=== PATIENT | female | born 1975 | race Caucasian/White ===

== ENCOUNTER → 2016-04-28 | Outpatient (CLI) | payer MEDICAID ==
[~2016-04-28] MED LIST: CETIRIZINE HYDR10 MG OR; CLARITIN 10MG T10 MG PO; CYCLOBENZAPRINE10 MG PO; DOXYCYCLINE; DOXYCYCLINE100 M1 PO; ELAVIL GENERIC25 MG PO; ESTRACE0.5 MG OR; FLAGYL 500MG.500 MG PO; GABAPENTIN300 M1 PO; HYDROCODONE/ACE1 TA5 PO; IBU800 MG PO; LEVOFLOXACIN 7750 M1 PO; LORTAB 7.5/3251 TAB PO; MAXALT10 MG PO; NYSTATIN 1100000 UNI PO; OMEPRAZOLE20 MG PO; POTASSIUM CHLO20 ME2 PO; SUMATRIPTAN SU100 MG PO; TOPIRAMATE200 MG PO; VENLAFAXINE HY150 MG PO; VITAMIN D50000 IU PO; [UNRECOGNIZED DRUG - OTHER] VG
== END ==
LOC: LAB 20:15
DX: R10.9 Unspecified abdominal pain (principal)

== ENCOUNTER → 2016-07-31 | Outpatient (CLI) | payer MEDICAID ==
--- NOTE | 2016-07-31 16:29 | RADIOLOGY REPORT PS360 ---
ANKLE-RT-3 VIEWS HISTORY: Sprain/pain SPRAIN OF RT ANKLE ORDERING PHYSICIAN: Neetu Carrasco MD PATIENT AGE: 40 years COMPARISON: None FINDINGS: No fracture or dislocation. No lytic or blastic change. There is normal mineralization.. The joint spaces are well-preserved. No significant degenerative/arthritic changes. No erosive changes evident. Minimal soft tissue swelling laterally IMPRESSION: Minimal soft tissue swelling, no acute fracture
== END ==
LOC: RAD 15:37
DX: S93.491A Sprain of other ligament of right ankle, initial encounter (principal)

== ENCOUNTER 2016-11-30 10:26 | Emergency (ER) | payer MEDICAID ==
[~2016-11-30] VITALS: Ht 162.6 cm; Wt 97.5 kg
[~2016-11-30 10:26] MED LIST changes: +ALPRAZOLAM0.5 M3 PO; +CYMBALTA60 M1 PO; +FEMRING0.05 MG/24 VG; +FLAGYL500 M1 PO; +GLUCOPHAGE XR750 MG PO; +LINZESS290 MCG PO; +PREDNISONE 20MG20 MG PO; +VALTREX1 GM PO
--- NOTE | 2016-11-30 11:04 | Urgent Treatment Center Report ---
History of Present Issue Date/Time Seen by Provider 11/30/16 1050 Visit Reason Pt arrived:Walked Presenting Problem:PT C/O SORE THROAT AND CHATTERJEE X2 DAYS. PT BELIEVES SHE MAY HAVE STREP THROAT AND ALSO CONCERNED ABOUT A VAGINAL INFECTION Location if Accident: Onset of symptoms date/time:/ or onset unknown for:MEDICAL HX UNKNOWN Have you (or family members/close friends) recently traveled outside the [place]? N If Yes, where/when: Have you had exposure to infectious disease within the past month? TB? Other? Specify: Here d/t sore throat starting in the middle of the night but while here, also concerned about a possible vaginal infection. Sore throat started throughout night. "could be allergies but could be strep. They feel the same for me." Associated w/ dry cough and migraine. Described as scratchy and raw. No fever, aches, chills. Hasn't taken or tried anything for symptoms. Primarily interest to know if she has strep or not. Migraine started yesterday. 12/16. 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 Hx of migraines. Topamax yesterday didn't help. Hasn't tried it today. Drove here today. Is not interested in having migraine treated. "I have tramadol at home". c/o "I know I have a bacterial vaginal infection". c/o "yellow discharge, fishy odor and itchy" x 2-3 days. hx of genital herpes as well as yeast/bacterial infections. take valtrex daily and uses acyclovir cream TID PRN w/ new lesions. Currently out of acyclovir and requesting refill. Denies new lesions. Two lesions present "but those are always there and was there before I was sexually active.". 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 pt already took diflucan prior to arrival. Sexually active w/ multiple sexual partners. Hx of partial hysterectomy w/ right ovary remaining. Hx of right ovarian cysts. Denies abdominal pain. "just suprapubic fullness". Denies dysuria but does have urinary frequency however reports "this is normal for me. I was told I needed a bladder tack" Source patient Exam Limitations no limitations ALLERGIES Coded Allergies: amoxicillin (From AUGMENTIN) (Mild, 11/30/16) clavulanic acid (From AUGMENTIN) (Mild, 11/30/16) morphine (10/20/16) Home Medications Active Scripts Metronidazole (Flagyl) 500 MG PO TID #21 TAB Prov: 10/24/16 POTASSIUM CHL (Potassium Chloride) 20 MEQ PO DAILY #30 TAB Ref 3 Prov: 04/12/14 Reported Medications Ibuprofen (MOTRIN 800MG (generic) Tablet) 800 MG PO TIDP PRN PAIN #90 TAB Alprazolam 0.5 MG PO TID DULOXETINE HCL (Cymbalta) 90 MG PO DAILY VALACYCLOVIR HCL (Valtrex) 1 GM PO DAILY METFORMIN HCL (Glucophage XR) 750 MG PO DAILY Estradiol Acetate (Femring) 0.05 MG VG MONTHLY Omeprazole (Omeprazole 20MG) 20 MG PO DAILY #30 Cetirizine Hcl (Cetirizine Hydrochloride) 10 MG OR DAILY #30 ERGOCALCIFEROL (VITAMIN D2) (Vitamin D2) 50,000 IUNITS PO ONCE #4 Topiramate 200 MG PO DAILY #30 Sumatriptan Succinate 100 MG PO PRN PRN NEEDED FOR HEADACHE #9 History Medical History General CAD? No Angina: No [place]: No Hypertension? Yes Hyperlipidemia? No CHF? No COPD? No Asthma? No Anemia? No Hernia? No Thyroid Problems? No Hypothyroidism? No CVA? No Seizures? No Diabetes? No UTI? Yes Stones? No GB Disease: No Nephritic Syndrome? No Asplenia? No Hepatitis? No Sickle Cell Disease? No Arthritis? No Migraines? Yes Cataracts? No Glaucoma? No MRSA? No TB? No Cancer? No Immunization HX DT/Tetanus 1-4 Years Ago Flu Refused Pneumonia Refuses Surgical Hx Previous Surgery?Y D+C RIGHT KNEE SURGERY X3 RIGHT KNEE SURGERY AGAIN TWO WISDOM TEETH REMOVED HYSTERECTOMY X2 LEFT ANKLE CARPAL TUNNEL R Cholecystectomy Family History Family HX Diabetes Yes CAD Yes Hypertension Yes Hyperlipidemia Yes Cancer Yes TB No Social History Smoking Hx Smoker: Never Smoker Tobacco: No Alcohol Alcohol: No Review of Systems All Other Systems Reviewed and Negative Constitutional see HPI, denies chills, denies malaise Eyes denies drainage ENT see HPI. denies: ear pain, nose discharge, nose congestion, throat swelling. Respiratory see HPI, denies shortness of breath, denies wheezing Cardiovascular denies chest pain Gastrointestinal see HPI, denies constipation, denies diarrhea, denies nausea, denies vomiting Genitourinary see HPI. denies: hesitancy, dyspareunia. Musculoskeletal denies back pain Skin see HPI, denies rash Psychiatric/Neurological see HPI Physical Exam Vital Signs Vital Signs Date Time Temp Pulse Resp B/P Pulse O2 O2 Flow FiO2 Ox Delivery Rate 11/30 1037 98.4 79 18 142/97 98 General Appearance normal appearance, no apparent distress, very talkative, browsing on phone throughout entire stay in [facility], eager to show off wedding pictures from last night Eye Exam - bilateral eye normal exam Ear, Nose, Throat normal ENT inspection Neck non-tender, supple, full range of motion Respiratory Status Yes: trachea midline. No: respiratory distress, use of accessory muscles, productive cough, non productive cough. Lung Sounds anterior: lungs clear. posterior: lungs clear. bilateral: lungs clear. Cardiovascular regular rate/rhythm, no peripheral edema, no murmur Gastrointestinal normal bowel sounds, non tender, soft, no suprapubic tenderness , no bladder distention Back no CVA tenderness Pelvic normal external exam (x/ lesions), normal internal exam (x/ minimal discharge), normal adnexa, no cerv. motion tender, no masses, discharge (minimal , white), two lesions right labia majoria, pt reports "always there", approx 2- 4mm Nurse present during exam? Yes (Alicia) Neurologic alert, oriented x 3 Mental status normal mood/affect, very pleasant Skin normal color, warm/dry Lymphatic no adenopathy Medical Decision Making LABS/Meds/Orders Pt receiving controlled substance in ED? No Results/Orders Laboratory Tests 11/30/16 1220: Ur Chlamydia DNA (PCR) Pending, Urine GC DNA Probe Pending 11/30/16 1211: Urine Color DARK YELLOW, Urine Appearance SLIGHTY CLOUDY, Urine pH 8.5, Ur Specific [place] 1.020, Urine Protein NEGATIVE, Urine Ketones NEGATIVE, Urine Blood NEGATIVE, Urine Nitrate NEGATIVE, Urine Bilirubin NEGATIVE, Urine Urobilinogen 2.0, Ur Leukocyte Esterase NEGATIVE, Urine Glucose NEGATIVE 11/30/16 1050: Group A Strep Screen NOT DETECTED Current Medication Orders Sig/Gilles Start time Last Medication Dose Route Stop Time Status Admin Azithromycin 1,000 MG ONCE ONE 11/30 1300 DC 11/30 PO 11/30 1301 1305 Ceftriaxone Sodium 1 GM ONCE ONE 11/30 1300 DCr 11/30 IM 11/30 1301 1305 Lidocaine HCl 0 ONCE ONE 11/30 1300 DC 11/30 IM 11/30 1301 1305 Ceftriaxone Sodium 0 .STK-MED ONE 11/30 1259 DCr .ROUTE Lidocaine HCl 0 .STK-MED ONE 11/30 1259 DC .ROUTE Azithromycin 0 .STK-MED ONE 11/30 1258 DC PO Orders Procedure Date/time Status WET PREP 11/30 1211 Complete MAJOR PREP 11/30 1211 Complete UTC URINE DIPSTICK 11/30 1211 Complete CHL/GC URINE 11/30 1211 Active UT STREP SCREEN 11/30 1041 Complete Progress UT Progress Notes Date 11/30/16 Time 1254 Comment Discussed results w/ patient. Agrees that treatment for gonorrhea and chlamydia "probably [place]". Hx of being treated for both in the past. Allergy to amoxicillin and augmentin listed. Pt reports not allergy and "more intolerance". Hx of Cdiff w/ augmentin. Reports has had multiple rocephin injections in the past "without complications". Agrees to follow up w/ SECURITY CONTROL ROOM OFFICER tomorrow. Aware GC/Ch results won't be available for approx one week and extrememely important she follow up on those. States + understanding. agreeable. Departure Departure Time of Disposition 1305 Disposition DC Home or Self Care(routine) Clinical Impression Primary Impression: Sore throat Secondary Impressions: Bacterial vaginitis, High risk sexual behavior Condition STABLE Referrals NO REFERRAL Dr. German, SECURITY CONTROL ROOM OFFICER, call tomorrow and schedule follow up appt Patient Instructions DI for Chlamydia, DI for Gonorrhea, Informing Partners of STI Patients Reduces Ongoing and Recurrent Sexually T, Sore Throat Additional Instructions Sextually transmitted infection was NOT comfirmed today but test were sent to rule it out. Those test will not be available for 5-7 days. Follow up w/ Dr. German VERY important. No intercourse until test results known No intercourse during outbreaks Acyclovir cream was refill at your request but FU w/ Dr. German for additional treatment and refills * No sign of bacterial throat infection. Possibly viral or allergic. Really soon to know. If viral, can take 7-14 days to run their course * Monitor Temp. Tylenol every 4 hours as needed and/or ibuprofen every 6 hours as needed (as long as your primary care doctor has told you that it is ok to take both) for fever/aches/pain. ER if fever no less than 101 despite tylenol and ibuprofen * Encourage fluids, water, gatorade, powerade, pedialyte if infant/toddler/child * warm salt water gargles * warm fluids * sore throat lozenges * sleep elevated * humidifier/vaporizer * * Your throat swab was sent for culture. Those results are typically sent to your primary care. Be sure to follow up in 2-3 days if no improvement so they can review those results and treat if necessary. If you don't have primary care, I recommend you get one but in the mean time, you will have to return to a walk in clinic. Discharge Counseling Counseled pt/family regarding diagnosis, test results, medications/RX, home care, follow up needs Prescriptions Current Visit Scripts ACYCLOVIR (Zovirax Cream) 1 RITIKA TP TIDP PRN genital lesions #1 TUBE at 1314
[2016-11-30 12:40] LABS: URINE BILIRUBIN - DIPSTICK NEGATIVE (NEG); URINE BLOOD NEGATIVE (NEG)
[2016-11-30] MEDS ORDERED: ZOVIRAX51 TP (13:03)
[2016-11-30 13:13] VITALS: BP 142/97
[2016-12-03 08:46] LABS: Neisseria gonorrhoeae, NAA Negative (Negative)
== END 2016-11-30 13:17 | disposition home or self-care (01) ==
LOC: UTC 10:26
PROVIDERS: Nurse Practitioner Family
DX: J02.9 Acute pharyngitis, unspecified (principal); N76.0 Acute vaginitis; Z72.51 High risk heterosexual behavior; Z88.1 Allergy status to other antibiotic agents; Z88.6 Allergy status to analgesic agent; Z79.899 Other long term (current) drug therapy; I10 Essential (primary) hypertension; G43.909 Migraine, unspecified, not intractable, without status migrainosus

== ENCOUNTER 2016-12-22 19:58 | Emergency (ER) | payer MEDICAID ==
[~2016-12-22] VITALS: Ht 162.6 cm; Wt 99.3 kg
[~2016-12-22 19:58] MED LIST changes: +ZOVIRAX51 TP
--- NOTE | 2016-12-22 20:16 | Emergency Room Report ---
History of Present Illness Time Seen by 2013 Presenting Problem in Triage Pt arrived:Walked Presenting Problem:C/O MID CHEST PAIN SHARP IN NATURE WHICH STARTED TODAY AND RADIATES TO RIGHT SIDE. HAD EDG 0N 12/17/16 AND HAD ESOPHAGUS DILATED ALONG WITH COLONOSCOPY AND BIOPSY OF STOMACH AND INTESTINES. STATES PAIN IS WORSE WITH MOVEMENT AND RESP. 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 N Clinical Suspician of Infection? N Mental Status: 1 - Regular (Normal Baseline) Sepsis Risk:Possible Sepsis Risk Have you (or family members/close friends) recently traveled outside the [place]? N If Yes, where/when: Have you had exposure to infectious disease within the past month? N TB? Other? Specify: Source patient, RN notes reviewed, family, RN/MD Exam Limitations no limitations Comment This is a 41-year-old female patient presented to emergency room with midsternal, sharp, epigastric pain radiating into the mid chest, onset approximately 6 hours prior to arrival. Patient has a history of esophageal strictures, and underwent an EGD with esophageal dilatation on December 17. On Thursday she underwent a colonoscopy with biopsies. Procedures were uneventful, and she has recovered without any complications. She has a history of C. difficile, H. pylori, gastritis, currently on PPIs, H2 blockers etc. She drinks alcohol occasionally. ALLERGIES Coded Allergies: amoxicillin (From AUGMENTIN) (Mild, 11/30/16) clavulanic acid (From AUGMENTIN) (Mild, 11/30/16) morphine (10/20/16) Home Medications Active Scripts ACYCLOVIR (Zovirax Cream) 1 RITIKA TP TIDP PRN genital lesions #1 TUBE Prov: 11/30/16 POTASSIUM CHL (Potassium Chloride) 20 MEQ PO DAILY #30 TAB Ref 3 Prov: 04/12/14 Reported Medications Alprazolam 0.5 MG PO TID DULOXETINE HCL (Cymbalta) 90 MG PO DAILY VALACYCLOVIR HCL (Valtrex) 1 GM PO DAILY Omeprazole (Omeprazole 20MG) 20 MG PO DAILY #30 Cetirizine Hcl (Cetirizine Hydrochloride) 10 MG OR DAILY #30 ERGOCALCIFEROL (VITAMIN D2) (Vitamin D2) 50,000 IUNITS PO ONCE #4 METFORMIN HCL (Glucophage XR) 750 MG PO BID Topiramate 200 MG PO DAILY #30 Sumatriptan Succinate 100 MG PO PRN PRN NEEDED FOR HEADACHE #9 History Medical History General CAD? No Angina: No [place]: No Hypertension? Yes Hyperlipidemia? No CHF? No DVT? No PE? No COPD? No Asthma? No Anemia? No GERD? No Gastric ulcers? No GI Bleed? No Hernia? No Thyroid Problems? No Hypothyroidism? No CVA? No Seizures? No Diabetes? No Renal Insuffiency? No End Stage Renal Disease? No UTI? Yes Stones? No BPH? No GB Disease: No Nephritic Syndrome? No Asplenia? No Hepatitis? No Sickle Cell Disease? No Arthritis? No Migraines? Yes Cataracts? No Glaucoma? No MRSA? No HIV? No TB? No Anxiety? No Depression? No Cancer? No More? No Immunization Hx DT/Tetanus 1-4 Years Ago Flu Refused Pneumonia Refuses Surgical Hx Previous Surgery?Y D+C RIGHT KNEE SURGERY X3 RIGHT KNEE SURGERY AGAIN TWO WISDOM TEETH REMOVED HYSTERECTOMY X2 LEFT ANKLE CARPAL TUNNEL R Cholecystectomy MINISTER Hx LMP N/A Comment HYSTERECTOMY Family History Family Hx Diabetes Yes CAD Yes Hypertension Yes Hyperlipidemia Yes Cancer Yes TB No Social History Smoking Hx Smoker: Never Smoker Tobacco: No Alcohol Alcohol: No Review of Systems All Other Systems Reviewed and Negative Cardiovascular chest pain Gastrointestinal abdominal pain Physical Exam Vital Signs Vital Signs Date Time Temp Pulse Resp B/P Pulse O2 O2 Flow FiO2 Ox Delivery Rate 12/22 2224 98.4 73 20 119/78 98 12/22 2217 73 20 119/78 98 12/22 2142 69 20 121/76 100 12/22 2102 67 20 119/69 98 12/22 2000 98.4 91 20 148/96 98 General Appearance normal appearance, WD/WN, no apparent distress Respiratory Status Yes: trachea midline, chest symmetrical, non tender chest. No: respiratory distress. Lung Sounds bilateral: normal breath sounds, lungs clear. Cardiovascular normal exam, regular rate/rhythm, no peripheral edema, no gallop, no JVD, no murmur, no rub, normal peripheral pulses Gastrointestinal soft, no organomegaly, tenderness (epigastric tenderness) Extremities non-tender, normal range of motion, normal inspection Neurologic alert, hat lining paster II-XII nml as tested, normal exam, oriented x 3 Mental status normal mood/affect Skin intact, normal color, warm/dry Medical Decision Making LABS/Meds/Orders Pt receiving controlled substance in ED? No Comment Upon reevaluation patient is medically stable, in no acute distress. Advised patient of the results obtained, as well as need to follow-up with bingo clerk, Dr. Fuad Smith, per discharge instructions. Patient advised to avoid any of all intake, continue current medications, as previously instructed. Results/Orders Laboratory Tests 12/22/162018: B-Natriuretic Peptide < 5, D-Dimer < 100 12/22/161949: Sodium 138, Potassium 3.7, Chloride 104, Carbon Dioxide 26, BUN 16, Creatinine 0.8, Estimated Creat Clear 147, Estimated GFR (MDRD) 79, Glucose 101, Calcium 9.0, Total Bilirubin 0.4, AST 19, ALT 33, Alkaline Phosphatase 81, Creatine Kinase 53, CK-MB (CK-2) Rel Index 0.9, CK and CKMB Interp < 0.5, Troponin I < 0.02, Total Protein 7.3, Albumin 3.8, Globulin 3.5 H, Albumin/Globulin Ratio 1.1, Amylase 35, Lipase 152, WBC 9.7, RBC 4.08 L, Hgb 14.3, Hct 41.9, MCV 102.7 H, RDW 13.0, Plt Count 312, MPV 7.5, Gran % 61.7, Gran # 6.0, Lymphocytes % 31.6, Monocytes % 4.9, Eosinophils % 1.3, Basophils % 0.5, Lymphocytes # 3.1, Monocytes # 0.5, Eosinophils # 0.1, Basophils # 0.1, PUBS MCHC 34.2, MCH 35.1 H Current Medication Orders Sig/Gilles Start time Last Medication Dose Route Stop Time Status Admin Aspirin 0 .STK-MED ONE 12/22 2022 DC .ROUTE Aspirin 324 MG ONCE ONE 12/22 2014 DC 12/22 PO 12/22 Sodium Chloride 10 ML PRN PRN 12/22 2014 DCD IV 12/23 2010 Orders Procedure Date/time Status D-DIMER 12/22 2018 Complete BRAIN NATRIURETIC PEPTIDE 12/22 2018 Complete ELECTROCARDIOGRAM REQUEST 12/22 2010 Active CHEST(2 VIEWS-NOT PORTABLE) 12/22 2010 Active IV SALINE LOCK 12/22 2010 Active DEVELOPER ARCHITECT 12/22 2010 Active LIPASE 12/22 2010 Complete CBC WITH AUTO DIFF 12/22 2010 Complete CARDIAC ENZYMES 12/22 2010 Complete CHEM 12 PROFILE 12/22 2010 Complete AMYLASE 12/22 2010 Complete 12 LEAD EKG-OSMEL (INITIAL) 12/22 1953 Active CM/EKG CM/administrative office specialist Rhythm Normal Sinus Rhythm Rate 88 Ectopy No Comments No acute ischemic changes EKG rate, NSR, rhythm, no evid. of ischemic chgs, no ectopy, normal QRS, normal GA, normal EKG, no EKG for comparison, non-spec. ST/Twave chgs, ST elevation, ST depression, LBBB, RBBB, ectopy, abnormal Q waves XRAY/CT/US XRAY/CT/US XRAY chest XR interpretation by reviewed by me Xray Results no infiltrates, normal heart size, normal lung inflation wendy Departure Departure Time of Disposition 2213 Disposition DC Home or Self Care(routine) Clinical Impression Primary Impression: Chest pain Qualifiers: Chest pain type: unspecified Qualified Code: R07.9 - Chest pain, unspecified Secondary Impressions: Gastritis Qualifiers: Gastritis type: unspecified gastritis Chronicity: chronic Gastritis bleeding: without bleeding Qualified Code: K29.50 - Unspecified chronic gastritis without bleeding Condition STABLE Referrals Neetu Carrasco MD (Family): 2 Days-Call Office Fuad Smith MD: 2 Days-Call Office Patient Instructions DI for Atypical Chest Pain, DI for Gastritis Additional Instructions Please continue same medications as previously prescribed, follow-up with Dr. Smith within 2 days for additional outpatient workup. Discharge Counseling Counseled pt/family regarding diagnosis, test results, medications/RX, home care, follow up needs Comment Please continue same medications as previously prescribed, follow-up with Dr. Smith within 2 days for additional outpatient workup. ED Critical Care Critical Care No [place] 0203
--- NOTE | 2016-12-22 20:16 | Emergency Room Report ---
History of Present Illness Time Seen by 2013 Presenting Problem in Triage Pt arrived:Walked Presenting Problem:C/O MID CHEST PAIN SHARP IN NATURE WHICH STARTED TODAY AND RADIATES TO RIGHT SIDE. HAD EDG 0N 12/17/16 AND HAD ESOPHAGUS DILATED ALONG WITH COLONOSCOPY AND BIOPSY OF STOMACH AND INTESTINES. STATES PAIN IS WORSE WITH MOVEMENT AND RESP. ENIES N/V OR DIAPHORESIS Onset of symptoms date/time:12/22/16 or onset unknown for:MEDICAL HX UNKNOWN Treatment Prior to Arrival: SCHOOL SUPERVISOR Provided by: Sepsis Risk Assessment: Temp: 98.4 B/P: 148/96 MAP: 113 Pulse: 91 Resp: 20 Recent fever? N Clinical Suspician of Infection? N Mental Status: 1 - Regular (Normal Baseline) Sepsis Risk:Possible Sepsis Risk Have you (or family members/close friends) recently traveled outside the [place]? N If Yes, where/when: Have you had exposure to infectious disease within the past month? N TB? Other? Specify: Source patient, RN notes reviewed, family, RN/MD Exam Limitations no limitations Comment This is a 41-year-old female patient presented to emergency room with midsternal, sharp, epigastric pain radiating into the mid chest, onset approximately 6 hours prior to arrival. Patient has a history of esophageal strictures, and underwent an EGD with esophageal dilatation on December 17. On Thursday she underwent a colonoscopy with biopsies. Procedures were uneventful, and she has recovered without any complications. She has a history of C. difficile, H. pylori, gastritis, currently on PPIs, H2 blockers etc. She drinks alcohol occasionally. ALLERGIES Coded Allergies: amoxicillin (From AUGMENTIN) (Mild, 11/30/16) clavulanic acid (From AUGMENTIN) (Mild, 11/30/16) morphine (10/20/16) Home Medications Active Scripts ACYCLOVIR (Zovirax Cream) 1 RITIKA TP TIDP PRN genital lesions #1 TUBE Prov: 11/30/16 POTASSIUM CHL (Potassium Chloride) 20 MEQ PO DAILY #30 TAB Ref 3 Prov: 04/12/14 Reported Medications Alprazolam 0.5 MG PO TID DULOXETINE HCL (Cymbalta) 90 MG PO DAILY VALACYCLOVIR HCL (Valtrex) 1 GM PO DAILY Omeprazole (Omeprazole 20MG) 20 MG PO DAILY #30 Cetirizine Hcl (Cetirizine Hydrochloride) 10 MG OR DAILY #30 ERGOCALCIFEROL (VITAMIN D2) (Vitamin D2) 50,000 IUNITS PO ONCE #4 METFORMIN HCL (Glucophage XR) 750 MG PO BID Topiramate 200 MG PO DAILY #30 Sumatriptan Succinate 100 MG PO PRN PRN NEEDED FOR HEADACHE #9 History Medical History General CAD? No Angina: No MS: No Hypertension? Yes Hyperlipidemia? No CHF? No DVT? No PE? No COPD? No Asthma? No Anemia? No GERD? No Gastric ulcers? No GI Bleed? No Hernia? No Thyroid Problems? No Hypothyroidism? No CVA? No Seizures? No Diabetes? No Renal Insuffiency? No End Stage Renal Disease? No UTI? Yes Stones? No BPH? No GB Disease: No Nephritic Syndrome? No Asplenia? No Hepatitis? No Sickle Cell Disease? No Arthritis? No Migraines? Yes Cataracts? No Glaucoma? No MRSA? No HIV? No TB? No Anxiety? No Depression? No Cancer? No More? No Immunization Hx DT/Tetanus 1-4 Years Ago Flu Refused Pneumonia Refuses Surgical Hx Previous Surgery?Y D+C RIGHT KNEE SURGERY X3 RIGHT KNEE SURGERY AGAIN TWO WISDOM TEETH REMOVED HYSTERECTOMY X2 LEFT ANKLE CARPAL TUNNEL R Cholecystectomy MANUFACTURING ENGINEER Hx LMP N/A Comment HYSTERECTOMY Family History Family Hx Diabetes Yes CAD Yes Hypertension Yes Hyperlipidemia Yes Cancer Yes TB No Social History Smoking Hx Smoker: Never Smoker Tobacco: No Alcohol Alcohol: No Review of Systems All Other Systems Reviewed and Negative Cardiovascular chest pain Gastrointestinal abdominal pain Physical Exam Vital Signs Vital Signs Date Time Temp Pulse Resp B/P Pulse O2 O2 Flow FiO2 Ox Delivery Rate 12/22 2224 98.4 73 20 119/78 98 12/22 2217 73 20 119/78 98 12/22 2142 69 20 121/76 100 12/22 2102 67 20 119/69 98 12/22 2000 98.4 91 20 148/96 98 General Appearance normal appearance, WD/WN, no apparent distress Respiratory Status Yes: trachea midline, chest symmetrical, non tender chest. No: respiratory distress. Lung Sounds bilateral: normal breath sounds, lungs clear. Cardiovascular normal exam, regular rate/rhythm, no peripheral edema, no gallop, no JVD, no murmur, no rub, normal peripheral pulses Gastrointestinal soft, no organomegaly, tenderness (epigastric tenderness) Extremities non-tender, normal range of motion, normal inspection Neurologic alert, family practice md II-XII nml as tested, normal exam, oriented x 3 Mental status normal mood/affect Skin intact, normal color, warm/dry Medical Decision Making LABS/Meds/Orders Pt receiving controlled substance in ED? No Comment Upon reevaluation patient is medically stable, in no acute distress. Advised patient of the results obtained, as well as need to follow-up with basketball referee, Dr. Fuad Smith, per discharge instructions. Patient advised to avoid any of all intake, continue current medications, as previously instructed. Results/Orders Laboratory Tests 12/22/162018: B-Natriuretic Peptide < 5, D-Dimer < 100 12/22/161949: Sodium 138, Potassium 3.7, Chloride 104, Carbon Dioxide 26, BUN 16, Creatinine 0.8, Estimated Creat Clear 147, Estimated GFR (MDRD) 79, Glucose 101, Calcium 9.0, Total Bilirubin 0.4, AST 19, ALT 33, Alkaline Phosphatase 81, Creatine Kinase 53, CK-MB (CK-2) Rel Index 0.9, CK and CKMB Interp < 0.5, Troponin I < 0.02, Total Protein 7.3, Albumin 3.8, Globulin 3.5 H, Albumin/Globulin Ratio 1.1, Amylase 35, Lipase 152, WBC 9.7, RBC 4.08 L, Hgb 14.3, Hct 41.9, MCV 102.7 H, RDW 13.0, Plt Count 312, MPV 7.5, Gran % 61.7, Gran # 6.0, Lymphocytes % 31.6, Monocytes % 4.9, Eosinophils % 1.3, Basophils % 0.5, Lymphocytes # 3.1, Monocytes # 0.5, Eosinophils # 0.1, Basophils # 0.1, PUBS MCHC 34.2, MCH 35.1 H Current Medication Orders Sig/Gilles Start time Last Medication Dose Route Stop Time Status Admin Aspirin 0 .STK-MED ONE 12/22 2022 DC .ROUTE Aspirin 324 MG ONCE ONE 12/22 2014 DC 12/22 PO 12/22 Sodium Chloride 10 ML PRN PRN 12/22 2014 DCD IV 12/23 2010 Orders Procedure Date/time Status D-DIMER 12/22 2018 Complete BRAIN NATRIURETIC PEPTIDE 12/22 2018 Complete ELECTROCARDIOGRAM REQUEST 12/22 2010 Active CHEST(2 VIEWS-NOT PORTABLE) 12/22 2010 Active IV SALINE LOCK 12/22 2010 Active LEAD CASE MANAGER 12/22 2010 Active LIPASE 12/22 2010 Complete CBC WITH AUTO DIFF 12/22 2010 Complete CARDIAC ENZYMES 12/22 2010 Complete CHEM 12 PROFILE 12/22 2010 Complete AMYLASE 12/22 2010 Complete 12 LEAD EKG-OSMEL (INITIAL) 12/22 1953 Active CM/EKG CM/education coordinator Rhythm Normal Sinus Rhythm Rate 88 Ectopy No Comments No acute ischemic changes EKG rate, NSR, rhythm, no evid. of ischemic chgs, no ectopy, normal QRS, normal SD, normal EKG, no EKG for comparison, non-spec. ST/Twave chgs, ST elevation, ST depression, LBBB, RBBB, ectopy, abnormal Q waves XRAY/CT/US XRAY/CT/US XRAY chest XR interpretation by reviewed by me Xray Results no infiltrates, normal heart size, normal lung inflation wendy Departure Departure Time of Disposition 2213 Disposition DC Home or Self Care(routine) Clinical Impression Primary Impression: Chest pain Qualifiers: Chest pain type: unspecified Qualified Code: R07.9 - Chest pain, unspecified Secondary Impressions: Gastritis Qualifiers: Gastritis type: unspecified gastritis Chronicity: chronic Gastritis bleeding: without bleeding Qualified Code: K29.50 - Unspecified chronic gastritis without bleeding Condition STABLE Referrals Neetu Carrasco MD (Family): 2 Days-Call Office Fuad Smith MD: 2 Days-Call Office Patient Instructions DI for Atypical Chest Pain, DI for Gastritis Additional Instructions Please continue same medications as previously prescribed, follow-up with Dr. Smith within 2 days for additional outpatient workup. Discharge Counseling Counseled pt/family regarding diagnosis, test results, medications/RX, home care, follow up needs Comment Please continue same medications as previously prescribed, follow-up with Dr. Smith within 2 days for additional outpatient workup. ED Critical Care Critical Care No at [id number]
[2016-12-22 20:19] LABS: HEMOGLOBIN 14.3 g/dL (12.2-16.2); LYMPH # 3.1 K/mm3 (0.7-4.5); LYMPH % 31.6 % (10-50.0)
[2016-12-22 20:40] LABS: BUN 16 mg/dL (7-18)
[2016-12-22 20:42] LABS: GFR (ESTIMATED) 79 ML/MIN (59-)
[2016-12-22 22:25] VITALS: BP 119/78
--- NOTE | 2016-12-23 04:12 | RADIOLOGY REPORT PS360 ---
CHEST(2 VIEWS-NOT PORTABLE) HISTORY: C/O CHEST PAIN ORDERING PHYSICIAN: Kevin Dotson MD PATIENT AGE: 41 years COMPARISON: 10/21/2016 FINDINGS: The cardiomediastinal silhouette and pulmonary vascularity are within normal limits. Patchy density is noted over the right lower lung zone on the frontal view probably within the right lower lobe area the remaining lungs are clear.. No acute bony abnormalities. IMPRESSION: Patchy right lower lobe infiltrate/pneumonia
== END 2016-12-22 22:30 | disposition home or self-care (01) ==
LOC: ER 19:58
PROVIDERS: Emergency Medicine
DX: R07.9 Chest pain, unspecified (principal); K29.50 Unspecified chronic gastritis without bleeding; I10 Essential (primary) hypertension; Z79.84 Long term (current) use of oral hypoglycemic drugs; Z79.899 Other long term (current) drug therapy

== ENCOUNTER → 2016-12-30 | Outpatient (CLI) | payer MEDICAID ==
--- NOTE | 2016-12-30 14:22 | RADIOLOGY REPORT PS360 ---
CHEST(2 VIEWS-NOT PORTABLE) HISTORY: Pneumonia follow-up PNEUMONIA ORDERING PHYSICIAN: Doreen Garner APRN PATIENT AGE: 41 years COMPARISON: 12/22/2016 FINDINGS: The cardiomediastinal silhouette and pulmonary vascularity are within normal limits. The lungs are clear without infiltrates, suspicious nodules, or pleural effusions. No acute bony abnormalities. Right lower lobe pneumonia resolved since previous exam. IMPRESSION: Negative chest, no acute finding
== END ==
LOC: RAD 12:24
DX: J18.9 Pneumonia, unspecified organism (principal)